=== PATIENT | female | born 1955 | race Caucasian/White ===

== ENCOUNTER 2016-12-31 08:04 | Emergency (ER) | payer BC ==
[2016-12-31] MEDS ORDERED: IBUPROFEN 600 MG TABLET PO ONE (08:34)
--- NOTE | 2016-12-31 08:39 | ERNOTE ---
Medical Problem HPI - General Chief Complaint: General Assessment Time Seen by Provider: 12/31/16 08:28 Source: patient Exam Limitations: no limitations - Immun/Allergies/Home Medications Immunizations: IMMUNIZATION HX Immunizations Up to Date Yes History of Influenza Vaccine No Hx Pneumococcal Vaccination No Allergies/Adverse Reactions: Allergies No Known Allergies Allergy (Verified 12/31/16 08:12) Home Medications: HOME MEDICATIONS NK [No Home Medication] 12/31/16 [Last Taken Unknown] - History of Present History Narrative: Patient has had a cough and runny nose for about three days. Yesterday she started to have pain in her left lower chest, worse with cough, breathing and movement. She has not tried any pain meds yet Date (Duration): 12/30/16 Modifying Factors - (Improves): Present: rest Modifying Factors - (Worsens): Present: movement Review of Systems - Review of Systems Constitutional: Absent: recent illness, fever ENT: Present: nose congestion, nasal drainage. Absent: ear pain, sore throat Respiratory: Present: cough. Absent: shortness of breath Cardiology: Present: See HPI, chest pain. Absent: palpitations Gastrointestinal/Abdominal: Absent: nausea, vomiting, diarrhea, abdominal pain Genitourinary: Present: no symptoms reported Musculoskeletal: Absent: back pain, neck pain Skin: Absent: rash Neurological: Absent: headache Hematologic/Lymphatic: Present: no symptoms reported - Patient's Past Medical History Patient History - Medical: No pertinent hx Patient History - Cardiac/Respiratory: No pertinent hx Patient History - Cancer: No Hx of Cancer Patient History - Surgical Procedures: Hysterectomy Patient History - Other: None LMP (females 10-50): Menopausal - Social History Living Situations: home Abuse History: No History of abuse Psych History: No pertinent hx Smoking Status: Current every day smoker Cigarettes Packs Per Day: 0.3 Have you smoked in the past 12 months: Yes Alcohol Use: rarely Drug Use: none - Immunizations Immunizations Up to Date: Yes Hx Pneumococcal Vaccination: No History of Influenza Vaccine: No Physical Exam - Physical Exam General Appearance: Present: wd/wn, alert, no apparent distress Eye Exam: Normal inspection: bilateral, PERRL: bilateral Ears, Nose, Throat: Present: normal ENT inspection, normal pharynx Neck: Present: normal inspection, nontender. Absent: lymphadenopathy (R), lymphadenopathy (L) Respiratory: Present: no respiratory distress, normal breath sounds, no accessory muscle use, chest nontender, lungs clear Cardiovascular/Chest: Present: regular rate, rhythm, no murmur Gastrointestinal/Abdominal: Present: normal bowel sounds, nontender, nondistended, soft Back Exam: Present: normal inspection, no vertebral tenderness Neurological Exam: Present: alert, oriented, normal mood/affect, no motor/ sensory deficits Skin Exam: Present: normal color, warm/dry ED Progress - Results and Orders Patient's Lab Results:: I have reviewed the patient's lab results. - Vital Signs Patient's Vital Signs:: I have reviewed the patient's vital signs. Vital Signs: Vital Signs 12/31/16 08:07 Temperature 36.7 C Pulse Rate 67 Respiratory 16 Rate Blood Pressure 144/82 O2 Sat by Pulse 100 Oximetry - X-Ray X-Ray #1 X-Ray: chest - right basilar atelectsis, no infiltrate Interpretation: Reviewed by me - Progress/Reassessment Chief Complaint: General Assessment Progress Note-Subjective: 12/31/16 09:37 discussed results with patient Departure Clinical Impression: Pleurisy Upper respiratory infection Qualifiers: URI type: unspecified URI Qualified Code(s): J06.9 - Acute upper respiratory infection, unspecified - Departure Disposition: Home self-care Condition: Good Instructions: Upper Respiratory Infection, Adult, [id number], Pleurisy, Easy- to-Read Additional Instructions: take over the counter ibuprofen (200mg) 2-3 tablets every six hours as needed for pain, if your symptoms do not improve over the next few days or you get any additional symptoms you need to be seen again Referrals: Mike Doss MD [Primary Care Provider] -
[2016-12-31] MEDS ORDERED: IBUPROFEN 600 MG TABLET ONE (08:44)
[2016-12-31 08:48] LABS: Hematocrit 42.4 % (37.0-47.0); Mean Corpuscular Hemoglobin 29.7 pg (27-31); Mean Platelet Volume 9.8 fl (6.0-9.5); Neutrophil % 62.7 % (42-75.0); Platelet Count 234 K/mm3 (150-450); Red Blood Count 4.71 M/mm3 (4.2-5.4); Red Cell Distribution Width 13.4 % (11.5-14.0); White Blood Count 6.3 K/mm3 (4.0-10.5)
[2016-12-31 09:02] LABS: Albumin * 3.6 gm/dl (3.4-5.0); Anion Gap 12.1 mmol/L (6.8-13.8); BUN/Creatinine Ratio 24.7 (9.0-21.6); Bilirubin, Total 0.4 mg/dL (0.0-1.1); Ca. Corrected For Albumin 9.2 mg/dL (8.4-10.2); Calcium * 9.2 mg/dL (7.9-10.9); Potassium 4.1 mmol/L (3.4-4.6); Total Protein 7.1 gm/dL (6.2-8.2)
[2016-12-31 10:01] VITALS: BP 117/67
== END 2016-12-31 09:47 | disposition home or self-care (01) ==
LOC: ER 08:04
DX: R09.1 Pleurisy (principal); J06.9 Acute upper respiratory infection, unspecified; F17.200 Nicotine dependence, unspecified, uncomplicated